=== PATIENT | female | born 1980 | race Caucasian/White ===

== ENCOUNTER 2016-07-25 00:12 | Emergency (ER) | payer OTHER ==
[2016-07-25 00:43] LABS: BASOPHIL 0.3 % (0-2); EOSINOPHIL 2.5 % (0-5); HCT 39.2 % (37.0-47.0); HGB 13.6 g/dl (12.5-16.0); LYMPHOCYTE 45.5 % (15-48); MCH 29.8 pg (25.0-31.0); MCHC 34.7 g/dL (32.0-36.0); MONOCYTE 5.3 % (0-12); MPV 10.4 fL (6.0-9.5); NEUTROPHIL 46.4 % (41-80); PLT 260 K/uL (150-400); RBC 4.56 M/uL (4.20-5.40); RDW 12.7 % (11.5-14.0); WBC 10.3 K/uL (4.0-10.5)
[2016-07-25 02:13] LABS: LACTIC ACID 2.4 mmol/L (0.5-2.2)
[2016-07-25 02:18] LABS: ALBUMIN 4.3 g/dL (3.5-5.0); BILIRUBIN - TOTAL 0.2 mg/dL (0.1-1.0); CREATININE 0.8 mg/dL (0.5-1.0); GLOBULIN (CALCULATION) 2.4 g/dL (2.2-4.2); POTASSIUM 2.7 mmol/L (3.5-5.1); TOTAL PROTEIN 6.7 g/dL (6.4-8.3)
[2016-07-25 02:43] LABS: BILIRUBIN NEGATIVE (NEGATIVE); BLOOD NEGATIVE Ery/uL (NEGATIVE); CLARITY CLEAR (CLEAR); COLOR STRAW (YELLOW); GLUCOSE (U) NORMAL (NORMAL); KETONE (U) NEGATIVE (NEGATIVE); LEUKOCYTES NEGATIVE Leu/uL (NEGATIVE); NITRITE NEGATIVE (NEGATIVE); PROTEIN NEGATIVE (NEGATIVE); SPECIFIC GRAVITY <=1.005 (1.001-1.030); UROBILINOGEN 0.2 mg/dL (0.2-1.0); pH 7.5 (5.0-9.0)
[2016-07-25 02:55] LABS: AMPHETAMINES NEGATIVE (NEGATIVE); BARBITURATES NEGATIVE (NEGATIVE); BENZODIAZEPINES NEGATIVE (NEGATIVE); COCAINE NEGATIVE (NEGATIVE); MARIJUANA (THC) NEGATIVE (NEGATIVE); METHADONE POSITIVE (NEGATIVE); TRICYCLIC ANTIDEPRESSANT NEGATIVE (NEGATIVE)
[2016-07-25 06:23] LABS: FT4 (FREE T4) 1.24 ng/dL (0.93-1.70); TSH (THYROID STIM HORMONE) 1.49 uIU/mL (0.270-4.200)
== END 2016-07-25 05:38 | disposition home or self-care (01) ==
LOC: FER 00:12
PROVIDERS: Emergency Medicine Emergency Medical Services
DX: R00.2 Palpitations (principal); R00.0 Tachycardia, unspecified; E87.6 Hypokalemia; E86.9 Volume depletion, unspecified; F17.210 Nicotine dependence, cigarettes, uncomplicated
CPT/HCPCS: 36415; 71010; 80053; 80305; 81003; 82150; 83605; 83690; 84132; 84439; 84443; 84484; 85025; 85379; 93005; J2405; Q9967